=== PATIENT | female | born 1945 | race Hispanic/Latino ===

== ENCOUNTER 2016-11-27 10:49 | Outpatient (CLI) | payer MEDICARE, OTHER ==
--- NOTE | 2016-11-27 12:10 | Ultrasound Report ---
LEFT BREAST ULTRASOUND: 11/27/16 10:49:00 CLINICAL: Mammographic asymmetry. COMPARISON: 11/03/16 and 10/20/16 mammograms. FINDINGS: Ultrasound of the left breast(including all four quadrants and the retroareolar area) was performed and demonstrated a benign cyst at 9 o'clock 3 cm from the nipple measuring 3 x 4 x 3 mm. The breast is otherwise normal. IMPRESSION: A benign 4 mm cyst at 9 o'clock and otherwise negative left breast ultrasound. In view of this negative ultrasound, the mammographic asymmetry is not significant. BI-RADS 2 - - Benign RECOMMENDATION: Recommend routine mammographic screening in one year.
== END 2016-11-27 10:50 | disposition home or self-care (01) ==
LOC: SPVWC 10:49
PROVIDERS: ATTEND Surgery
DX: N60.02 Solitary cyst of left breast (principal)